=== PATIENT | female | born 1945 | race Caucasian/White ===

== ENCOUNTER 2022-12-15 08:41 | Day surgery (SDC) | payer MEDICARE ==
[2022-12-14 14:41] LABS: CLARITY,URINE CLEAR (Clear); COLOR,URINE YELLOW (Yellow); GLUCOSE, URINE NEGATIVE (Neg); KETONES,URINE NEGATIVE (Neg); LEUKOCYTE ESTERASE ,URINE NEGATIVE (Neg); NITRITES, URINE NEGATIVE (Neg); OCCULT BLOOD,URINE NEGATIVE (Neg); PROTEIN,URINE NEGATIVE (Neg); UROBILINOGEN,URINE 0.2 E.U/dL (0.2-1.0)
[2022-12-14 14:43] LABS: UA COLLECTION TYPE CLN CATCH MIDSTREAM
[2022-12-14 14:57] LABS: ALBUMIN 3.9 G/DL (3.4-5.0); ALBUMIN/GLOBULIN RATIO 1.2 (1.1-1.5); ALKALINE PHOSPHATASE 86 IU/L (46-116); BLOOD UREA NITROGEN 15 MG/DL (7-18); BUN/CREATININE RATIO 25.4 (10.0-20.0); CALCIUM 8.9 MG/DL (8.5-10.1); CHLORIDE 107 MMOL/L (99-107); CREATININE 0.59 MG/DL (0.40-0.90); PRE OP ALT 26 U/L (30-65); PRE OP ANION GAP 8 (8-16); PRE OP AST 22 U/L (10-37); PRE OP BILIRUB, TOTAL 0.4 MG/DL (0.0-1.0); PRE OP GLUCOSE 99 MG/DL (70-104); PRE OP POTASSIUM 3.6 MMOL/L (3.4-5.1); PRE OP SODIUM 142 MMOL/L (135-145); TOTAL CARBON DIOXIDE 27.2 MMOL/L (24-32); TOTAL PROTEIN 7.2 G/DL (6.4-8.2); eGFR > 90 ML/MIN
[2022-12-14 15:02] LABS: BASOPHILS # (AUTO) 0.1 X10'3 (0-0.2); BASOPHILS % (AUTO) 1.5 % (0-1); EOSINOPHILS # (AUTO) 0.5 X10'3 (0-0.9); EOSINOPHILS % (AUTO) 7.5 % (0-6); LYMPHOCYTES # (AUTO) 1.3 X10'3 (1.1-4.8); LYMPHOCYTES % (AUTO) 17.8 % (21-51); MEAN CORPUSCULAR HEMOGLOBIN 30.6 PG (27.0-31.0); MEAN CORPUSCULAR HGB CONC 34.5 g/dL (33.0-36.5); MEAN CORPUSCULAR VOLUME 88.8 FL (78-98); MEAN PLATELET VOLUME 8.6 FL (7.4-10.4); MONOCYTES # (AUTO) 0.7 X10'3 (0-0.9); MONOCYTES % (AUTO) 10.6 % (2-12); NEUTROPHILS # (AUTO) 4.4 X10'3 (1.8-7.7); NEUTROPHILS % (AUTO) 62.6 % (42-75); PRE OP HEMATOCRIT 39.9 % (35.0-45.0); PRE OP HEMOGLOBIN 13.7 g/dL (12.0-16.0); PRE OP PLATELET COUNT 255 X10'3 (140-440); RED BLOOD COUNT 4.49 X10'6 (4.20-5.60)
[~2022-12-15] VITALS: Ht 165.1 cm; Wt 86.2 kg
[2022-12-15] VITALS (15 sets, daily range): BP systolic 128–146; BP diastolic 58–76
[~2022-12-15 08:41] MED LIST: AMLO2.5T5 PO; ATOR20TA66 PO; CHOL100017 PO; VITA1TAB20 PO; ceFOXitin 2GM-NS 100mL ADDvant 100 ML IV ONE; famotidine 20mg tablet PO ONE; ringers solution, lacted 1,000 ML IV SCH
[2022-12-15] MEDS ORDERED: hydrALAZINE 20mg/ml inj. IV PRN (09:40)
[2022-12-15] MEDS ORDERED: fentaNYL/PF 50MCG/1 ML 2ML syringe IV PRN ×2 (09:40)
[2022-12-15] MEDS ORDERED: morphine 2 MG/ML inj. syringe IV PRN (09:40)
[2022-12-15] MEDS ORDERED: ringers solution, lacted 1,000 ML IV SCH (09:40)
[2022-12-15] MEDS ORDERED: morphine 4 MG/ML inj SYRINge IV PRN (09:40)
[2022-12-15] MEDS ORDERED: labetalol 20mg/4ml (5mg/ml) syringe IV PRN (09:40)
[2022-12-15] MEDS ORDERED: ondansetron/PF 4mg/2ml inj IV PRN (09:40)
[2022-12-15 10:10] LABS: PRE OP PARTIAL THROMB. TIME 25 SECONDS (22-32)
[2022-12-15] MEDS ORDERED: LIDOcaine 1% 30ml preserv. free vial ONE (10:14)
[2022-12-15] MEDS ORDERED: BUPIVAcaine/PF 2.5 mg/ml (0.25%) 30ml vial ONE (10:14)
[2022-12-15] MEDS ORDERED: dexamethasone sod phosphate 10mg/ml inj ONE (10:16)
[2022-12-15] MEDS ORDERED: desflurane 240ml liquid inh. IH ONE (10:16)
[2022-12-15] MEDS ORDERED: fentaNYL/PF 50MCG/1 ML 2ML syringe ONE (10:23)
[2022-12-15] MEDS ORDERED: midazolam 1 mg/ML 2ml injection ONE (10:24)
[2022-12-15] MEDS ORDERED: propofol inj 20 ML IV ONE (10:27)
[2022-12-15] MEDS ORDERED: LIDOcaine 2% (20mg/ml) 5ml vial ONE (10:27)
[2022-12-15] MEDS ORDERED: ondansetron/PF 4mg/2ml inj ONE (10:28)
[2022-12-15] MEDS ORDERED: ePHEDrine 50MG/ML INJ. ONE (10:40)
[2022-12-15] MEDS ORDERED: BUPIVAcaine 0.25% w/Epi /PF 30ml vial ONE (10:55)
[2022-12-15] MEDS ORDERED: mupirocin 2% ointment 22GM ONE (11:04)
--- NOTE | 2022-12-15 11:25 | NUR ---
Received from OR via [facility], accompanied by Anesthesiologist DR LEUNG and report given by Anesthesiologist. PT IS GROGGY BUT RESPOND EASILY TO VERBAL STIMULI AND FOLLOWS COMMANDS. PT PLACED ON BEDSIDE MONITOR. VSS. PT IS RECEIVING 8L O2 TO MASK AND TOLERATING WELL WITH 02SAT >95%. WILL TITRATE DOWN AT PT TOLERATES. PT HAS 20G PIV TO LEFT FA WITH LR INFUSING ORDERED. PT HAS DRSG TO RT AXILLARY THAT IS CDI. PT DENIES PAIN AT THIS TIME. WILL CONTINUE TO ASSESS
[2022-12-15] MEDS ORDERED: HYDROcodone/acetaminophen 10/325mg tab PO ONE (12:20)
--- NOTE | 2022-12-15 14:07 | NUR ---
ABLE TO SAFELY AMBULATE AND TRANSFER SELF. IV TAKEN OUT WITHOUT ANY COMPLICATIONS. ALL DISCHARGE INSTRUCTIONS COVERED WITH PATIENT, SUPPLIES FOR DRESSING CHANGES SENT HOME AND ALL QUESTIONS ANSWERED. PATIENT TAKEN OUT VIA WHEELCHAIR TO PERSONAL VEHICLE WHERE ZEINA DROVE PATIENT HOME.
== END 2022-12-15 13:57 | disposition home or self-care (01) ==
LOC: PAS 08:41
PROVIDERS: ATTEND Surgery
DX: R59.0 Localized enlarged lymph nodes (principal); C83.34 Diffuse large B-cell lymphoma, lymph nodes of axilla and upper limb; I10 Essential (primary) hypertension; E66.9 Obesity, unspecified; Z68.31 Body mass index [BMI] 31.0-31.9, adult; E78.5 Hyperlipidemia, unspecified; M19.90 Unspecified osteoarthritis, unspecified site; Z88.8 Allergy status to other drugs, medicaments and biological substances; Z88.7 Allergy status to serum and vaccine; Z98.51 Tubal ligation status; Z90.49 Acquired absence of other specified parts of digestive tract; Z98.890 Other specified postprocedural states; Z79.899 Other long term (current) drug therapy; Z79.01 Long term (current) use of anticoagulants; Z83.3 Family history of diabetes mellitus
CPT/HCPCS: 36415; 38500; 80053; 81003; 82948; 85025; 85610; 85730; 88184; 88185; 88305; 88360; J0694; J1100; J2250; J2270; J2405; J2704; J3010; J3490; J7030; J7120; S0020; Z7506; Z7508; Z7512; 88342; A4215; A4618; A6258; A6449; A7000